=== PATIENT | female | born 1995 | race Caucasian/White ===

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

== ENCOUNTER 2018-08-30 06:19 | Emergency (ER) | payer BC ==
[2018-08-30] MEDS ORDERED: ACETAMINOPHEN 325 MG TABLET PO ONE (06:25)
[2018-08-30] MEDS ORDERED: ONDANSETRON HCL INJ/PF 4 MG/2 ML SDV IV ONE (07:00)
[2018-08-30] MEDS ORDERED: KETOROLAC TROMETHAMINE INJ/PF 30 MG/1 ML SDV IV ONE (07:00)
[2018-08-30] MEDS ORDERED: NORMAL SALINE 1000 ML 1,000 ML IV ONE (07:00)
[2018-08-30] MEDS ORDERED: METHYLPREDNISOLONE INJ 125 MG/2 ML SDV IV ONE (07:01)
[2018-08-30 07:24] LABS: ABSOLUTE LYMPHOCYTES (AUTO) 1.9 10^3/uL (0.5-4.7); ABSOLUTE NEUT (AUTO) 7.8 10^3/uL (1.7-8.2); BASOPHILS % (AUTO) 0.3 % (0-2); HEMATOCRIT 42.2 % (36.0-47.0); HEMOGLOBIN 14.6 g/dL (12.0-15.5); LYMPHOCYTES % (AUTO) 17.7 % (13-45); MEAN CORPUSCULAR HEMOGLOBIN 29.2 pg (27.0-33.4); MEAN CORPUSCULAR HGB CONC 34.6 g/dL (32.0-36.0); MEAN CORPUSCULAR VOLUME 84 fl (80-97); MONOCYTES % (AUTO) 9.2 % (3-13); PLATELET COUNT 228 10^3/uL (150-450); RED BLOOD COUNT 5.01 10^6/uL (3.72-5.28); RED CELL DISTRIBUTION WIDTH 12.8 % (11.5-14.0); SEGMENTED NEUTROPHILS % (AUTO) 72.8 % (42-78); TOTAL CELLS COUNTED % (AUTO) 100 %; WHITE BLOOD COUNT 10.7 10^3/uL (4.0-10.5)
[2018-08-30 07:45] LABS: ALANINE AMINOTRANSFERASE 26 U/L (9-52); ALBUMIN 4.4 g/dL (3.5-5.0); ALKALINE PHOSPHATASE 43 U/L (38-126); ANION GAP 17 (5-19); ASPARTATE AMINO TRANSFERASE 20 U/L (14-36); BILIRUBIN,DIRECT 0.3 mg/dL (0.0-0.4); BILIRUBIN,TOTAL 0.6 mg/dL (0.2-1.3); BLOOD UREA NITROGEN 13 mg/dL (7-20); CALCIUM 9.7 mg/dL (8.4-10.2); CARBON DIOXIDE 19 mmol/L (22-30); CHLORIDE 106 mmol/L (98-107); CREATINE KINASE 63 U/L (30-135); GLUCOSE 116 mg/dL (75-110); POTASSIUM 3.3 mmol/L (3.6-5.0); SODIUM 142.2 mmol/L (137-145); TOTAL PROTEIN 8.1 g/dL (6.3-8.2)
--- NOTE | 2018-08-30 07:45 | ER Document Report ---
Entered by LEXY KENNEDY SCRIBE 08/30/18 0717 Acting as scribe for:MARYANNE AMAYA MD ED General - General Chief Complaint: Sore Throat Stated Complaint: FEVER Time Seen by Provider: 08/30/18 06:48 Primary Care Provider: SANDRA BRANNON NP [Primary Care Provider] - Follow up as needed Mode of Arrival: Ambulatory Information source: Patient Notes: Patient is a 23 year old female with a history of mononucleosis presents to the emergency department complaining of multiple symptoms including nausea, vomiting, diarrhea, abdominal pain, sore throat and intermittent fevers. Patient states 5 days ago, she developed a sore throat that has been progressively worsening further stating "I feel I am chocking on my own saliva". She states 3 days ago, she had approximately 40 episodes of watery diarrhea followed by vomiting onset yesterday which worsened last night. She describes her abdominal pain as a cramping that is briefly relieved with vomiting or an episode of diarrhea. She does report an episode of blood tinged vomit. She also complains of dizziness. Patient states she had a flare up of mono a few months ago with reported symp toms of a circular headache, neck pain and fevers. Patient received Tylenol in triage. TRAVEL OUTSIDE OF THE [place] IN LAST 30 DAYS: No - Related Data Allergies/Adverse Reactions: No Known Allergies Allergy (Verified 04/14/14 12:22) Past Medical History - General Information source: Patient - Social History Smoking Status: Never Smoker Cigarette use (# per day): No Chew tobacco use (# tins/day): No Smoking Education Provided: No Frequency of alcohol use: None Occupation: student Family History: Reviewed & Not Pertinent Pulmonary Medical History: Reports: Hx Asthma - A CHILD Infectious Medical History: Reports: Other - Mononucleosis - Immunizations Immunizations up to date: Yes Hx Diphtheria, Pertussis, Tetanus Vaccination: Yes Review of Systems - Review of Systems Constitutional: See HPI, Fever EENT: See HPI, Throat pain Cardiovascular: No symptoms reported Respiratory: No symptoms reported Gastrointestinal: See HPI, Abdominal pain, Diarrhea, Nausea, Vomiting, Blood in vomit Genitourinary: No symptoms reported Female Genitourinary: No symptoms reported Musculoskeletal: No symptoms reported Skin: No symptoms reported Hematologic/Lymphatic: No symptoms reported Neurological/Psychological: No symptoms reported -: Yes All other systems reviewed and negative Physical Exam - Vital signs Vitals: Temp Pulse Resp BP Pulse Ox 100.9 F H 132 H 24 H 138/95 H 99 08/30/18 06:23 08/30/18 06:23 08/30/18 06:23 08/30/18 06:23 08/30/18 06:23 - Notes Notes: GENERAL: Alert, appears anxious, hyperventilates when speaking. No acute distress. HEAD: Normocephalic, atraumatic. EYES: Pupils equal, round, and reactive to light. Extraocular movements intact. ENT: Oral mucosa moist, tongue midline. White scarring to the tonsilar region. Nares patent, no nasal septal hematoma, Left TM is retracted. Right TM is intact. NECK: Full range of motion. Supple. Trachea midline. LUNGS: Clear to auscultation bilaterally, no wheezes, rales, or rhonchi. No respiratory distress. HEART: Regular rate and rhythm. No murmurs, gallops, or rubs. ABDOMEN: Soft, obese. Mild diffuse tenderness to palpation. Non-distended. Bowel sounds present in all 4 quadrants. No guarding, rigidity, or rebound. EXTREMITIES: Moves all 4 extremities spontaneously. No edema, radial and dorsali s pedis pulses 2/4 bilaterally. No cyanosis. NEUROLOGICAL: Alert and oriented x3. Normal speech. PSYCH: Appears anxious. SKIN: Warm, mildly diaphoretic, normal turgor. No rashes or lesions noted. Course - Re-evaluation Re-evalutation: 08/30/18 09:03 At this time the patient states she feels much better. She has had 1 L of fluid along with the Zofran, Toradol, and Solu-Medrol. She will be given an additional liter of fluid and and discharged home with Zofran and recommendations for Tylenol, ibuprofen, lots of fluids, and lots of sleep and rest. - Vital Signs Vital signs: Temp Pulse Resp BP Pulse Ox 100.9 F H 132 H 24 H 138/95 H 99 08/30/18 06:23 08/30/18 06:23 08/30/18 06:23 08/30/18 06:23 08/30/18 06:23 - Laboratory Result Diagrams: 08/30/18 07:11 08/30/18 07:11 Laboratory results interpreted by me: 08/30/18 08/30/18 08/30/18 07:11 07:11 07:43 WBC 10.7 H Potassium 3.3 L Carbon Dioxide 19 L Glucose 116 H Urine Protein 100 H Urine Ketones 80 H Urine Blood SMALL H Discharge - Discharge Clinical Impression: Nausea, vomiting and diarrhea, Sore throat Fever Qualifiers: Fever type: unspecified Qualified Code(s): R50.9 - Fever, unspecified Headache Qualifiers: Headache type: other headache syndrome Qualified Code(s): G44.89 - Other headache syndrome Condition: Stable Disposition: HOME, SELF-CARE Additional Instructions: Viral Syndrome: The physician has diagnosed a viral infection. Viruses not only cause "colds," but can cause many different symptoms including generalized aching, fever, headache, cough, diarrhea, nausea, vomiting, and fatigue. The treatment, for the most part, is simply relief of symptoms. This means that antibiotics are usually not given. Rest, fluids, pain medications and, occasionally, medication for the specific symptoms that are most bothersome will be prescribed. Use good handwashing to avoid passing the virus to others. Shared toys should be cleaned with disinfectant. Clean the toilets, sinks, and counter surfaces in bathrooms. Launder clothing in hot water. Contact the physician if you develop any new or unusual symptoms such as severe headache, stiff neck, high fever, chest pain, productive cough, or shortness of breath. You should be rechecked if you don't see marked improvement within seven to 10 days. Take the Zofran as prescribed for nausea if needed. Drink plenty of cool clear liquids throughout the day and evening. Take Tylenol and ibuprofen for pain, fever, and headaches. Get plenty of rest and sleep. Follow-up with your primary care provider if not improving. RETURN TO THE EMERGENCY ROOM IF ANY NEW OR WORSENING SYMPTOMS. Prescriptions: Ondansetron [Zofran Odt 4 mg Tablet] 1 - 2 tab PO Q4H PRN #15 tab.rapdis PRN Reason: Referrals: SANDRA BRANNON, FR[employer] MANAGER [Primary Care Provider] - Follow up as needed Scribe Attestation: 08/30/18 07:45 I personally performed the services described in the documentation, reviewed and edited the documentation which was dictated to the scribe in my presence, and it accurately records my words and actions. I personally performed the services described in the documentation, reviewed and edited the documentation which was dictated to the scribe in my presence, and it accurately records my words and actions.
[2018-08-30 08:29] LABS: APPEARANCE,URINE CLOUDY; BILIRUBIN,URINE NEGATIVE (NEGATIVE); GLUCOSE, URINE NEGATIVE (NEGATIVE); KETONES,URINE 80 mg/dL (NEGATIVE); LEUKOCYTE ESTERASE,URINE NEGATIVE (NEGATIVE); NITRITE,URINE NEGATIVE (NEGATIVE); PROTEIN,URINE 100 mg/dL (NEGATIVE); URINE SPECIFIC GRAVITY 1.024; UROBILINOGEN,URINE NEGATIVE mg/dL (<2.0)
[2018-08-30 08:30] LABS: COLOR,URINE YELLOW
[2018-08-30] MEDS ORDERED: DEXTROSE 5%-LACTATED RINGERS 1,000 ML IV ONE (08:38)
[2018-08-30 10:00] VITALS: BP 122/82
== END 2018-08-30 10:00 | disposition home or self-care (01) ==
LOC: ER 06:19
DX: J02.9 Acute pharyngitis, unspecified (principal); K92.0 Hematemesis; R19.7 Diarrhea, unspecified; G44.89 Other headache syndrome; R50.9 Fever, unspecified; R10.9 Unspecified abdominal pain; R42 Dizziness and giddiness; Z86.19 Personal history of other infectious and parasitic diseases
CPT/HCPCS: 99283; 96361; 96374; 96375; 36415; 82550; 85025; 80053; 81001; J2930; J1885; J2405; J7121; J7030